=== PATIENT | female | born 1950 | race Caucasian/White ===

== ENCOUNTER 2016-10-01 16:39 | Emergency (ER) | payer MEDICARE, OTHER ==
[~2016-10-01] VITALS: Ht 177.8 cm; Wt 70.0 kg
[2016-10-01 16:44] VITALS: BP 118/71; PULSE 70; RESP 16; TEMP 98; O2SAT 98
--- NOTE | 2016-10-01 17:05 | PD ---
HPI Chief Complaint: Psychiatric Symptoms Time Seen by Provider: 16:59 (Erwin Plummer) Time Seen by Provider: 16:53 (Heather Murray DO) Travel History International Travel<30 days: No Contact w/Intl Traveler<30days: No Traveled to known affect area: No (Erwin Plummer) History of Present Illness HPI Patient comes in by EMS for medical clearance. Patient was reportedly found by bystanders on the street and after being approached patient reportedly started flailing around. Patient denies any medical concerns or complaints. Denies any chest pain, shortness of breath, nausea, vomiting, abdominal pain, headache , numbness or tingling anywhere, head and injury, loss or change in bowel or bladder, loss of consciousness, or fevers. Patient states that she was flying around today when she "fell 111 stories". Patient states that she flies every day wherever she wants including but not limited to [place], [place], and [place]. Patient states that she was born in [place] and that someone cut off one of her wings on her back and now she only has one. (Erwin Plummer) [facility] Past Medical History Medical History: Denies Significant Hx Diminished Hearing: No Tetanus Vaccination: Unknown ?: Unknown (Erwin Plummer) Social History Alcohol Use: No Tobacco Use: No Substance Use: No (Erwin Plummer) Allergies-Medications (Allergen,Severity, Reaction): Coded Allergies: No Known Allergies (Unverified , 10/01/16) Reported Meds & Prescriptions Reported Meds & Active Scripts Active No Active Prescriptions or Reported Medications (Heather Murray DO) Review of Systems Except as stated in HPI: all other systems reviewed are Neg (Erwin Plummer ) Physical Exam Narrative GENERAL: Well-developed, overly nourished, in no acute distress, and non-ill appearing. SKIN: Focused skin assessment warm and dry. HEAD: Atraumatic. Normocephalic. EYES: Pupils equal and round. EOMI. No scleral icterus. No injection or drainage. ENT: No nasal bleeding or discharge. Mucous membranes pink and moist. NECK: Trachea midline. Supple. No nuclear rigidity. CARDIOVASCULAR: Regular rate and rhythm. No murmur appreciated. RESPIRATORY: No accessory muscle use. No respiratory distress. Clear to auscultation. Breath sounds equal bilaterally. GASTROINTESTINAL: Abdomen soft, non-tender, nondistended. Hepatic and splenic margins not palpable. Normal bowel sounds 4. No pulsatile mass. MUSCULOSKELETAL: No obvious deformities. No clubbing. No cyanosis. No edema. Full range of motion. NEUROLOGICAL: Awake and alert. No obvious cranial nerve deficits. Motor grossly within normal limits. Normal speech. PSYCHIATRIC: Insight and judgment abnormal. (Erwin Plummer) Data Data Last Documented VS Vital Signs Date Time Temp Pulse Resp B/P Pulse Ox O2 Delivery O2 Flow Rate FiO2 10/01/16 19:28 90 17 116/71 96 Room Air 10/01/16 16:44 98.0 (Heather Murray DO) Orders Complete Blood Count With Diff (10/01/16 16:59) Comprehensive Metabolic Panel (10/01/16 16:59) Urinalysis - C+S If Indicated (10/01/16 16:59) Psych Screen (10/01/16 16:59) Drug Screen, Random Urine (10/01/16 16:59) Alcohol (Ethanol) (10/01/16 16:59) Salicylates (Aspirin) (10/01/16 16:59) Tylenol (Acetaminophen) (10/01/16 16:59) Potassium Chloride (Kcl) (10/01/16 18:00) (Heather Murray DO) Labs Laboratory Tests Test 10/01/16 10/01/16 17:00 18:20 White Blood Count 10.7 TH/MM3 Red Blood Count 4.54 MIL/MM3 Hemoglobin 14.6 GM/DL Hematocrit 41.4 % Mean Corpuscular Volume 91.1 FL Mean Corpuscular Hemoglobin 32.2 PG Mean Corpuscular Hemoglobin 35.3 % Concent Red Cell Distribution Width 12.3 % Platelet Count 288 TH/MM3 Mean Platelet Volume 7.5 FL Neutrophils (%) (Auto) 42.5 % Lymphocytes (%) (Auto) 51.3 % Monocytes (%) (Auto) 5.4 % Eosinophils (%) (Auto) 0.2 % Basophils (%) (Auto) 0.6 % Neutrophils # (Auto) 4.6 TH/MM3 Lymphocytes # (Auto) 5.5 TH/MM3 Monocytes # (Auto) 0.6 TH/MM3 Eosinophils # (Auto) 0.0 TH/MM3 Basophils # (Auto) 0.1 TH/MM3 CBC Comment AUTO DIFF Differential Total Cells 100 Counted Neutrophils % (Manual) 36 % Band Neutrophils % 1 % Lymphocytes % 56 % Monocytes % 6 % Basophils % 1 % Neutrophils # (Manual) 4.0 TH/MM3 Differential Comment FINAL DIFF MANUAL Platelet Estimate NORMAL Platelet Morphology Comment NORMAL Sodium Level 144 MEQ/L Potassium Level 3.4 MEQ/L Chloride Level 108 MEQ/L Carbon Dioxide Level 24.5 MEQ/L Anion Gap 12 MEQ/L Blood Urea Nitrogen 16 MG/DL Creatinine 1.00 MG/DL Estimat Glomerular Filtration 48 ML/MIN Rate Random Glucose 104 MG/DL Calcium Level 9.3 MG/DL Total Bilirubin 0.4 MG/DL Aspartate Amino Transf 39 U/L (AST/SGOT) Alanine Aminotransferase 59 U/L (ALT/SGPT) Alkaline Phosphatase 184 U/L Total Protein 7.3 GM/DL Albumin 4.1 GM/DL Salicylates Level LESS THAN 1.7 MG/DL Acetaminophen Level LESS THAN 2.0 MCG/ML Ethyl Alcohol Level 202 MG/DL Urine Color COLORLESS Urine Turbidity CLEAR Urine pH 6.0 Urine Specific [place] 1.003 Urine Protein NEG mg/dL Urine Glucose (UA) NEG mg/dL Urine Ketones NEG mg/dL Urine Occult Blood NEG Urine Nitrite NEG Urine Bilirubin NEG Urine Urobilinogen LESS THAN 2.0 MG/DL Urine Leukocyte Esterase NEG Urine RBC LESS THAN 1 /hpf Microscopic Urinalysis Comment CULT NOT INDICATED Urine Opiates Screen NEG Urine Barbiturates Screen NEG Urine Amphetamines Screen NEG Urine Benzodiazepines Screen NEG Urine Cocaine Screen NEG Urine Cannabinoids Screen NEG (Heather Murray DO) [facility] Medical Decision Making Medical Screen Exam Complete: Yes Emergency Medical Condition: Yes Differential Diagnosis Acute psychosis, schizophrenia, bipolar, drug-induced psychosis, alcohol into psychosis, electrolyte abnormality, dehydration, other Narrative Course Patient was seen and examined. Labs were obtained and reviewed. Potassium was replaced. Patient medically cleared for further treatment and evaluation by psych. Final disposition per psych. (Erwin Plummer) Diagnosis Primary Impression: Alcohol intoxication Qualified Code: F10.920 - Alcohol intoxication, uncomplicated Additional Impression: Hypokalemia Scripts No Active Prescriptions or Reported Meds Condition: Stable Erwin Plummer October 01, 2016 17:05 Heather Murray DO October 01, 2016 22:03
[2016-10-01 17:24] LABS: AUTOMATED NEUTROPHIL # 4.6 TH/MM3 (1.8-7.7); BASOPHIL # 0.1 TH/MM3 (0-0.2); BASOPHIL % 0.6 % (0.0-2.0); EOSINOPHIL % 0.2 % (0.0-4.0); HEMATOCRIT 41.4 % (35.0-46.0); LYMPH % 51.3 % (9.0-44.0); LYMPHOCYTE # 5.5 TH/MM3 (1.0-4.8); MEAN CELL VOLUME 91.1 FL (80.0-100.0); MEAN CORPUSCULAR HEMOGLOBIN 32.2 PG (27.0-34.0); MEAN CORPUSCULAR HGB CONC 35.3 % (32.0-36.0); MONO % 5.4 % (0.0-8.0); NEUT % 42.5 % (16.0-70.0); PLATELET COUNT 288 TH/MM3 (150-450); RED BLOOD COUNT 4.54 MIL/MM3 (4.00-5.30); RED CELL DISTRIBUTION WIDTH 12.3 % (11.6-17.2); WHITE BLOOD COUNT 10.7 TH/MM3 (4.0-11.0)
[2016-10-01 17:29] LABS: HEMO FLAGS AUTO DIFF
[2016-10-01 17:45] VITALS: BP 106/66; PULSE 99; RESP 20; O2SAT 96
[2016-10-01 17:45] LABS: ALT (GPT) 59 U/L (10-53); ANION GAP 12 MEQ/L (5-15); AST (GOT) 39 U/L (15-37); BICARBONATE 24.5 MEQ/L (21.0-32.0); BLOOD UREA NITROGEN 16 MG/DL (7-18); CHLORIDE 108 MEQ/L (98-107); GLOMERULAR FILTRATION RATE 48 ML/MIN (>89); POTASSIUM 3.4 MEQ/L (3.5-5.1); SODIUM (NA) 144 MEQ/L (136-145)
[2016-10-01 17:48] LABS: ACETAMINOPHEN LESS THAN 2.0 MCG/ML (10.0-30.0); ALKALINE PHOSPHATASE 184 U/L (45-117); TOTAL BILIRUBIN ADULT 0.4 MG/DL (0.2-1.0)
[2016-10-01] MEDS ORDERED: POTASSIUM CHLORIDE 20 MEQ CONTROLLED RELEASE TAB PO ONE (18:00)
[2016-10-01 18:10] LABS: BANDS 1 % (0-6); BASOPHILS 1 % (0-2); PLATELET ESTIMATE SMEAR NORMAL (NORMAL); PLATELET MORPHOLOGY NORMAL (NORMAL); POLYS (SEG NEUTROPHILS) 36 % (16-70); SCAN/DIFF FINAL DIFF MANUAL; WBC DIFF SAMPLE 100
[2016-10-01 18:48] VITALS: BP 110/70; PULSE 82; RESP 18; O2SAT 99
[2016-10-01 18:58] LABS: AMPHETAMINE, URINE NEG (NEG); BARBITURATES, URINE NEG (NEG); COCAINE, URINE NEG (NEG)
[2016-10-01 19:06] LABS: BLOOD, URINE NEG (NEG); GLUCOSE,URINE NEG (NEG); KETONE, URINE NEG (NEG); NITRITE,URINE NEG (NEG); URINE COLOR COLORLESS (YELLW/STRAW)
[2016-10-01 19:08] LABS: COMMENT (UR) CULT NOT INDICATED; CULTURE IF INDICATED CULT NOT INDICATED
[2016-10-01 19:28] VITALS: BP 116/71; PULSE 90; RESP 17; O2SAT 96
[2016-10-01 22:00] VITALS: BP 172/92; PULSE 115; RESP 17; O2SAT 98
[2016-10-01] MEDS ORDERED: LORazepam 2 MG/ML VIAL IV PUSH PRN ×4 (22:45)
[2016-10-01] MEDS ORDERED: LORazepam 1 MG TAB PO PRN (22:45)
[2016-10-01] MEDS ORDERED: LORazepam 2 MG TAB PO PRN (22:45)
[2016-10-01] MEDS ORDERED: FLUMAZENIL 0.5 MG/5 ML VIAL IV PUSH PRN (22:45)
[2016-10-02 02:00] VITALS: BP 138/87; PULSE 100; RESP 18; O2SAT 99
[2016-10-02 06:00] VITALS: BP 170/88; PULSE 113; RESP 19; O2SAT 99
--- NOTE | 2016-10-02 11:05 | PD.CONS ---
Provisional Diagnosis Admission Date [place] I. Alcohol use disorder [place] II. Deferred [place] III. 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 Patient comes in by EMS for medical clearance. Patient was reportedly found by bystanders on the street and after being approached patient reportedly started flailing around. Patient denies any medical concerns or complaints. Patient states that she was flying around today when she "fell 111 stories". Patient was alcohol intoxicated, very disorganized. Patient states that she flies every day wherever she wants including but not limited to [place], [place], and [place]. Patient states that she was born in [place] and that someone cut off one of her wings on her back and now she only has one. She was finally transferred to [facility] for psychiatric clearance. On psychiatric evaluation today patient is clinically sober, she denies depressive symptoms, she denies anxiety, she denies phil, she denies psychosis. Patient denies suicidal or homicidal ideation. Patient denies visual and auditory hallucinations. Patient stated that she feels ashamed for what happened last night she became drunk. 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 Patient is fully oriented 3, no attention deficit, no cognitive impairment observed. Patient reports occasional use of alcohol. Denies the use of illicit drugs. Review of Systems Constitutional: DENIES: Diaphoretic episodes, Fatigue, Fever, Weight gain, Weight loss, Chills, Dizziness, Change in appetite, Night Sweats Endocrine: DENIES: Abnorml menstrual pattern, Heat/cold intolerance, Polydipsia , Polyuria, Polyphagia Eyes: DENIES: Blurred vision, Diplopia, Eye inflammation, Eye pain, Vision loss , Photosensitivity, Double Vision Ears, nose, mouth, throat: DENIES: Tinnitus, Hearing loss, Vertigo, Nasal discharge, Oral lesions, Throat pain, Hoarseness, Ear Pain, Running Nose, Epistaxis, Sinus Pain, Toothache, Odynophagia Respiratory: DENIES: Apneas, Cough, Snoring, Wheezing, Hemoptysis, Sputum production, Shortness of breath Cardiovascular: DENIES: Chest pain, Palpitations, Syncope, Dyspnea on Exertion , PND, Lower Extremity Edema, Orthopnea, Claudication Gastrointestinal: DENIES: Abdominal pain, Black stools, Bloody stools, Constipation, Diarrhea, Nausea, Vomiting, Difficulty Swallowing, Anorexia Genitourinary: DENIES: Abnormal vaginal bleeding, Dysmenorrhea, Dyspareunia, Sexual dysfunction, Urinary frequency, Urinary incontinence, Urgency, Hematuria , Dysuria, Nocturia, Vaginal discharge Musculoskeletal: DENIES: Joint pain, Muscle aches, Stiffness, Joint Swelling, Back pain, Neck pain Integumentary: DENIES: Abnormal pigmentation, Pruritus, Rash, Nail changes, Breast masses, Breast skin changes, Nipple discharge Hematologic/lymphatic: DENIES: Bruising, Lymphadenopathy Immunologic/allergic: DENIES: Eczema, Urticaria Neurologic: DENIES: Abnormal gait, Headache, Localized weakness, Paresthesias, Seizures, Speech Problems, Tremor, Poor Balance Psychiatric: DENIES: Anxiety, Confusion, Mood changes, Depression, Hallucinations, Agitation, Suicidal Ideation, Homicidal Ideation, Delusions Past Family Social History Coded Allergies: No Known Allergies (Unverified , 10/01/16) No Active Prescriptions or Reported Meds Family History Patient denies psychiatric family history Social History Patient was born and raised in [place], she is single, she lives with her son in [place], 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 2) Verbal communication Physical Exam On physical exam no agitation, no psychomotor retardation, no tremors, no withdrawal symptoms, no EPS, Vital Signs Vital Signs Date Time Temp Pulse Resp B/P Pulse Ox O2 Delivery O2 Flow Rate FiO2 10/02/16 06:00 113 19 170/88 99 Room Air 10/01/16 16:44 98.0 Lab Results BAL is 202 Mental Status Examination Appearance elderly woman, age appearing, good hygiene, hospital [facility], calm and cooperative, Speech: Unremarkable Orientation: x3 Memory: Unremarkable Thought Process: Logical Thought Content: Unremarkable Language Interviewed in Irish, fluent and is sometimes Fund of Knowledge Adequate for level of education Hallucination Type: None Attention and Concentration: Good Suicidal Ideation: No Homicidal Ideation: No Previous Homicide Attempts: No Insight: Good Judgment: WNL Affect: Good Mood: Appropriate Motor Activity: Normal gait Assessment & Plan Problem List: (1) Alcohol intoxication ICD Code: F10.929 (2) Alcohol abuse with alcohol-induced mood disorder Assessment & Plan: At the moment of this evaluation the patient does not present any acute psychiatric symptom that requires an immediate psychiatric intervention. Patient denies depression, anxiety, denies phil and psychosis. She denies visual and auditory hallucinations. She denies suicidal and homicidal ideation. Previous described disorganized behavior in the ER was was probably the result of acute alcohol intoxication. Patient does not meet criteria for psychiatric admission. Extensive psycho education, supportive motivation provided. Martines act will be lifted. ICD Code: F10.14 Assessment & Plan Estimated LOS: days Problem Qualifiers (1) Alcohol intoxication: Qualified Code: F10.920 - Alcohol intoxication, uncomplicated Reji Jha MD October 02, 2016 11:05
== END 2016-10-02 09:38 | disposition home or self-care (01) ==
LOC: NEPE 16:39 → EDBD 16:39 → NEPJ 10-02 09:38
DX: F10.120 Alcohol abuse with intoxication, uncomplicated (principal); E87.6 Hypokalemia; Y90.7 Blood alcohol level of 200-239 mg/100 ml
CPT/HCPCS: 80053; 80307; 81001; 85007; 85027; 99285